=== PATIENT | female | born 1975 | race Caucasian/White ===

== ENCOUNTER 2017-11-05 11:29 | Emergency (ER) | payer MEDICAID, OTHER ==
[2017-11-05] MEDS ORDERED: Sodium Chloride 0.9% 1,000 ML IV ONE (11:38)
[2017-11-05] MEDS ORDERED: Sodium Chloride 0.9% 10 ML Syringe FLUSH PRN (11:38)
[2017-11-05] MEDS ORDERED: HYDROmorphone 2 MG/ML SDV IVPUSH ONE (11:38)
--- NOTE | 2017-11-05 11:38 | EDM.PDOC ---
ED HPI GENERAL MEDICAL PROBLEM - General Chief Complaint: Abdominal Pain Stated Complaint: STOMACH PAIN Time Seen by Provider: 11/05/17 11:37 Source of Information: Reports: Patient History Limitations: Reports: No Limitations - History of Present Illness INITIAL COMMENTS - FREE TEXT/NARRATIVE: Presents with lower and epigastric pain since this morning associated with N/V and slight diarrhea. Onset: Today Duration: Day(s): Location: Reports: Abdomen Quality: Reports: Dull Severity: Moderate - Related Data Allergies Allergy/AdvReac Type Severity Reaction Status Date / Time tide Allergy Hives Uncoded 11/05/17 11:35 Home Meds: Home Meds Acetaminophen/HYDROcodone [[place] 325-5 MG] 1 - 2 tab PO Q6H PRN #20 tab [Rx] Doxycycline [Vibramycin] 100 mg PO BID 10 Days #20 cap 11/05/17 [Rx] Esomeprazole [NexIUM] 80 mg PO DAILY 11/05/17 [History] Fluconazole [Diflucan] 150 mg PO ONETIME #1 tab 11/05/17 [Rx] Herbal Drugs [Colon Herbal Cleanser] 1 each PO 11/05/17 [History] Lipozene 1 tab PO DAILY 11/05/17 [History] Promethazine [Phenergan] 25 mg PO Q6H PRN #15 tab 11/05/17 [Rx] metroNIDAZOLE [Flagyl] 500 mg PO Q12H 7 Days #14 tab 11/05/17 [Rx] Past Medical History Gastrointestinal History: Reports: PUD - Past Surgical History GI Surgical History: Denies: Appendectomy, Cholecystectomy Female Surgical History: Reports: Tubal Ligation Social & Family History - Tobacco Use Smoking Status *Q: Current Every Day Smoker Tobacco Use Within Last Twelve Months: Cigarettes - Alcohol Use Alcohol Use History: Yes Alcohol Use in Last Twelve Months: Yes Alcohol Use Frequency: Rarely - Recreational Drug Use Recreational Drug Use: No - Living Situation & Occupation Living situation: Reports: ED ROS GENERAL - Review of Systems Review Of Systems: See Below Constitutional: Reports: No Symptoms HEENT: Reports: No Symptoms Respiratory: Reports: No Symptoms Cardiovascular: Reports: No Symptoms Endocrine: Reports: No Symptoms GI/Abdominal: Reports: Abdominal Pain, Diarrhea (slight), Nausea, Vomiting ( epigastric and lower) : Reports: No Symptoms, Other (+vaginal discharge) Musculoskeletal: Reports: No Symptoms Skin: Reports: No Symptoms Neurological: Reports: No Symptoms Psychiatric: Reports: No Symptoms Hematologic/Lymphatic: Reports: No Symptoms Immunologic: Reports: No Symptoms ED EXAM, GI/ABD - Physical Exam Exam: See Below Exam Limited By: No Limitations General Appearance: Alert, WD/WN, Mild Distress Ears: Normal External Exam Nose: Normal Inspection Throat/Mouth: No Airway Compromise Head: Atraumatic, Normocephalic Neck: Supple Respiratory/Chest: No Respiratory Distress, Lungs Clear, Normal Breath Sounds Cardiovascular: Regular Rate, Rhythm, No Gallop, No JVD, No Murmur, No Rub GI/Abdominal Exam: Normal Bowel Sounds, Soft, Tender (moderate epigastric and lower) (Female) Exam: Normal External Exam, Cervix Motion Tenderness, Vaginal Discharge Back Exam: Normal Inspection Extremities: Normal Inspection, Normal Range of Motion Neurological: Alert, Oriented, Normal Cognition Psychiatric: Normal Affect, Normal Mood Skin Exam: Warm, Dry, Intact, Normal Color, No Rash Course - Vital Signs Last Recorded V/S: Last Vital Signs Temp 36.4 C 11/05/17 11:40 Pulse 92 11/05/17 11:40 Resp 14 11/05/17 11:40 BP 141/89 H 11/05/17 11:40 Pulse Ox 100 11/05/17 11:40 - Orders/Labs/Meds Orders: Active Orders 24 hr Category Date Time Status Abdomen Pelvis w Cont [CT] Stat Exams 11/05/17 13:33 Taken CHLAMYDIA/GC AMPLIFICATION Stat Lab 11/05/17 11:50 Received HCG QUALITATIVE,URINE [URCHEM] Stat Lab 11/05/17 11:50 Ordered UA W/MICROSCOPIC [URIN] Stat Lab 11/05/17 11:50 Ordered WET PREP [MYC] Stat Lab 11/05/17 17:55 Ordered Sodium Chloride 0.9% [Saline Flush] Med 11/05/17 11:38 Active 10 ml FLUSH ASDIRECTED PRN Saline Lock Insert [OM.PC] Routine Oth 11/05/17 11:38 Ordered Medication Orders Sodium Chloride (Saline Flush) 10 ml FLUSH ASDIRECTED PRN PRN Reason: Keep Vein Open Labs: Laboratory Tests 11/05/17 11/05/17 11/05/17 Range/Units 11:45 11:45 11:45 WBC 6.7 (4.5-12.0) X10-3/uL RBC 5.11 (3.23-5.20) x10(6)uL Hgb 10.4 L (11.5-15.5) g/dL Hct 33.7 (30.0-51.3) % MCV 66.0 L (80-96) fL MCH 20.4 L (27.7-33.6) pg MCHC 30.9 L (32.2-35.4) g/dL RDW 18.1 H (11.5-15.5) % Plt Count 246 (125-369) X10(3)uL MPV 8.0 (7.4-10.4) fL Neut % (Auto) 53.6 (46-82) % Lymph % (Auto) 38.1 H (13-37) % [place] % (Auto) 7.2 (4-12) % Eos % (Auto) 1 (1.0-5.0) % Baso % (Auto) 0 (0-2) % Neut # (Auto) 3.6 (1.6-8.3) # Lymph # (Auto) 2.5 (0.6-5.0) # [place] # (Auto) 0.5 (0.0-1.3) # Eos # (Auto) 0.1 (0.0-0.8) # Baso # (Auto) 0.0 (0.0-0.2) # PT 9.6 (8.7-11.1) INR 0.99 (0.89-1.13) Sodium 137 (135-145) mmol/L Potassium 3.5 (3.5-5.3) mmol/L Chloride 102 (100-110) mmol/L Carbon Dioxide 20 L (21-32) mmol/L BUN 14 (7-18) mg/dL Creatinine 0.7 (0.55-1.02) mg/dL Est Cr Clr Drug Dosing TNP Estimated GFR (MDRD) > 60 (>60) BUN/Creatinine Ratio 20.0 (9-20) Glucose 147 H (80-116) mg/dL Calcium 9.0 (8.6-10.2) mg/dL Total Bilirubin 0.5 (0.1-1.3) mg/dL AST 15 (5-25) IU/L ALT 18 (12-36) U/L Alkaline Phosphatase 75 (56-112) IU/L Total Protein 7.7 (6.0-8.0) g/dL Albumin 3.4 L (3.5-5.2) g/dL Globulin 4.3 g/dL Albumin/Globulin Ratio 0.8 Amylase 36 (25-115) U/L Urine Color (YELLOW) Urine Appearance (CLEAR) Urine pH (5.0-6.5) Ur Specific Gill (1.010-1.025) Urine Protein (NEGATIVE) mg/dL Urine Glucose (UA) (NEGATIVE) mg/dL Urine Ketones (NEGATIVE) mg/dL Urine Occult Blood (NEGATIVE) Urine Nitrite (NEGATIVE) Urine Bilirubin (NEGATIVE) Urine Urobilinogen (NEGATIVE) mg/dL Ur Leukocyte Esterase (NEGATIVE) Urine WBC (0) Ur Squamous Epith Cells (NS,R,O) Urine Bacteria (NS) Urine HCG, Qual (NEGATIVE) 11/05/17 11/05/17 Range/Units 11:50 11:50 WBC (4.5-12.0) X10-3/uL RBC (3.23-5.20) x10(6)uL Hgb (11.5-15.5) g/dL Hct (30.0-51.3) % MCV (80-96) fL MCH (27.7-33.6) pg MCHC (32.2-35.4) g/dL RDW (11.5-15.5) % Plt Count (125-369) X10(3)uL MPV (7.4-10.4) fL Neut % (Auto) (46-82) % Lymph % (Auto) (13-37) % [place] % (Auto) (4-12) % Eos % (Auto) (1.0-5.0) % Baso % (Auto) (0-2) % Neut # (Auto) (1.6-8.3) # Lymph # (Auto) (0.6-5.0) # [place] # (Auto) (0.0-1.3) # Eos # (Auto) (0.0-0.8) # Baso # (Auto) (0.0-0.2) # PT (8.7-11.1) INR (0.89-1.13) Sodium (135-145) mmol/L Potassium (3.5-5.3) mmol/L Chloride (100-110) mmol/L Carbon Dioxide (21-32) mmol/L BUN (7-18) mg/dL Creatinine (0.55-1.02) mg/dL Est Cr Clr Drug Dosing Estimated GFR (MDRD) (>60) BUN/Creatinine Ratio (9-20) Glucose (80-116) mg/dL Calcium (8.6-10.2) mg/dL Total Bilirubin (0.1-1.3) mg/dL AST (5-25) IU/L ALT (12-36) U/L Alkaline Phosphatase (56-112) IU/L Total Protein (6.0-8.0) g/dL Albumin (3.5-5.2) g/dL Globulin g/dL Albumin/Globulin Ratio Amylase (25-115) U/L Urine Color Yellow (YELLOW) Urine Appearance Cloudy (CLEAR) Urine pH 5.0 (5.0-6.5) Ur Specific Gill 1.025 (1.010-1.025) Urine Protein Negative (NEGATIVE) mg/dL Urine Glucose (UA) 50 H (NEGATIVE) mg/dL Urine Ketones 50 H (NEGATIVE) mg/dL Urine Occult Blood Negative (NEGATIVE) Urine Nitrite Negative (NEGATIVE) Urine Bilirubin Small H (NEGATIVE) Urine Urobilinogen 1 H (NEGATIVE) mg/dL Ur Leukocyte Esterase Negative (NEGATIVE) Urine WBC 0-5 (0) Ur Squamous Epith Cells Moderate H (NS,R,O) Urine Bacteria Moderate H (NS) Urine HCG, Qual Negative (NEGATIVE) Meds: Medications Generic Name Dose Route Start Last Admin Trade Name Freq PRN Reason Stop Dose Admin Sodium Chloride 10 ml 11/05/17 11:38 Saline Flush FLUSH ASDIRECTED PRN Keep Vein Open Discontinued Medications Generic Name Dose Route Start Last Admin Trade Name Freq PRN Reason Stop Dose Admin Ceftriaxone Sodium 1,000 mg 11/05/17 16:45 11/05/17 18:02 Rocephin IVPUSH 11/05/17 16:46 1,000 mg ONETIME ONE Administration Doxycycline Hyclate 100 mg 11/05/17 17:56 Vibra-Tabs PO 11/05/17 17:57 ONETIME ONE Hydromorphone HCl 1 mg 11/05/17 11:38 11/05/17 12:01 Dilaudid IVPUSH 11/05/17 11:39 1 mg ONETIME ONE Administration Sodium Chloride 1,000 mls @ 999 mls/hr 11/05/17 11:38 11/05/17 11:56 Normal Saline IV 11/05/17 12:38 999 mls/hr .BOLUS ONE Administration Iopamidol 100 ml 11/05/17 15:35 11/05/17 15:37 Isovue-370 (76%) IV 11/05/17 15:36 100 ml ONETIME ONE Administration Metronidazole 500 mg 11/05/17 18:31 Flagyl PO 11/05/17 18:32 ONETIME ONE Ondansetron HCl 4 mg 11/05/17 11:39 11/05/17 11:55 Zofran IVPUSH 11/05/17 11:40 4 mg ONETIME ONE Administration Pantoprazole Sodium 40 mg 11/05/17 11:39 11/05/17 11:59 Protonix Iv IVPUSH 11/05/17 11:40 40 mg ONETIME ONE Administration - Radiology Interpretation Free Text/Narrative:: CT Abd/Pelvis w/contrast: mildly thickened antrum of stomach, otherwise NAD. - Re-Assessments/Exams Free Text/Narrative Re-Assessment/Exam: 11/05/17 18:32 Symptoms improved after medications. Departure - Departure Time of Disposition: 18:32 Disposition: Home, Self-Care 01 Condition: Good Clinical Impression: PID (acute pelvic inflammatory disease), Bacterial vaginosis, Yeast vaginitis - Discharge Information *PRESCRIPTION DRUG MONITORING PROGRAM REVIEWED*: Yes *COPY OF PRESCRIPTION DRUG MONITORING REPORT IN PATIENT JERRI: Not Applicable Prescriptions: Acetaminophen/HYDROcodone [[place] 325-5 MG] 1 - 2 tab PO Q6H PRN #20 tab PRN Reason: Pain Doxycycline [Vibramycin] 100 mg PO BID 10 Days #20 cap Fluconazole [Diflucan] 150 mg PO ONETIME #1 tab metroNIDAZOLE [Flagyl] 500 mg PO Q12H 7 Days #14 tab Promethazine [Phenergan] 25 mg PO Q6H PRN #15 tab PRN Reason: Nausea/Vomiting Instructions: Bacterial Vaginosis, [id number], Bacterial Vaginosis, Vaginal Yeast Infection, Adult, Pelvic Inflammatory Disease Referrals: PCP,None [Primary Care Provider] - Forms: ED Department Discharge Additional Instructions: Fill prescriptions and take as directed. Follow up with your doctor in 3 days. Return to the ER if symptoms worsen. - My Orders Last 24 Hours: My Active Orders 11/05/17 11:38 Sodium Chloride 0.9% [Saline Flush] 10 ml FLUSH ASDIRECTED PRN Saline Lock Insert [OM.PC] Routine 11/05/17 11:50 CHLAMYDIA/GC AMPLIFICATION Stat HCG QUALITATIVE,URINE [URCHEM] Stat UA W/MICROSCOPIC [URIN] Stat 11/05/17 13:33 Abdomen Pelvis w Cont [CT] Stat 11/05/17 17:55 WET PREP [MYC] Stat - Assessment/Plan Last 24 Hours: My Active Orders 11/05/17 11:38 Sodium Chloride 0.9% [Saline Flush] 10 ml FLUSH ASDIRECTED PRN Saline Lock Insert [OM.PC] Routine 11/05/17 11:50 CHLAMYDIA/GC AMPLIFICATION Stat HCG QUALITATIVE,URINE [URCHEM] Stat UA W/MICROSCOPIC [URIN] Stat 11/05/17 13:33 Abdomen Pelvis w Cont [CT] Stat 11/05/17 17:55 WET PREP [MYC] Stat
[2017-11-05] MEDS ORDERED: Pantoprazole 40 MG Vial IVPUSH ONE (11:39)
[2017-11-05] MEDS ORDERED: Ondansetron 4 MG/2 ML SDV IVPUSH ONE (11:39)
[2017-11-05] MEDS ORDERED: Iopamidol 755 Mg/ML 100 ML Bottle IV ONE (15:35)
[2017-11-05] MEDS ORDERED: cefTRIAXone 1,000 MG VIAL IVPUSH ONE (16:45)
[2017-11-05] MEDS ORDERED: Doxycycline 100 MG Tab PO ONE (17:56)
[2017-11-05] MEDS ORDERED: metroNIDAZOLE 500 MG Tab PO ONE (18:31)
[2017-11-05 23:51] VITALS: BP 106/61
--- NOTE | 2017-11-06 11:17 | CT ---
INDICATION: Epigastric and lower midline pain, no umbilical pain. CT ABDOMEN AND PELVIS WITH CONTRAST: Spiral 2.5 mm axial sections were obtained through the abdomen and pelvis with oral and IV contrast (98 mL Isovue 370 at 2 mL/second at 100 second delay) with sagittal and coronal reconstructions, 11/05/2017 - no comparisons. These were repeated in the upper abdomen area, due to patient regurgitation at the time of the examination imaging. Total exam DLP = 875.54 mGy-cm. Lower lung koroma and pleural spaces visualized appeared normal. Minimal aortic calcification is noted. The appendix was visualized on axial images #119 through #129 and appeared normal. No evidence of free air or bowel obstruction was seen. No definite uterine mass or bladder mass was seen. The liver, spleen, adrenal glands, kidneys, and pancreas appear to be normal. The gallbladder appears somewhat distended but could be physiologically distended. This should be correlated clinically. Ultrasound may be necessary for further evaluation, depending upon clinical correlation. No calculi were identified in the gallbladder on CT. No retroperitoneal mass was seen. A tiny umbilical hernia is noted with only included fat. No organomegaly, mass lesions, or free fluid collections were identified in the abdomen or pelvis. The kidneys showed no evidence of obstruction with course and caliber of the ureters, as visualized, appearing normal. At the gastric antrum, there is some thickening of the wall suggested with the remainder of the stomach appearing unremarkable. IMPRESSION: Except for thickening of the gastric antral wall, no specific abnormality is identified in the abdomen or pelvis. The possibility of early or mild PUD would be a consideration with the gastric antral appearance. Only minmal aortic calcification was noted otherwise. Report was called to Dr. Caballero at 1613 hours on 11/05/2017. MTDD
[2017-11-08 08:04] LABS: CHLAMYDIA TRACHOMATIS, NAA Negative (Negative); NEISSERIA GONORRHOEAE, NAA Negative (Negative)
== END 2017-11-05 18:50 | disposition home or self-care (01) ==
LOC: FB.ED 11:29
DX: B37.3 Candidiasis of vulva and vagina (principal); N73.9 Female pelvic inflammatory disease, unspecified; N76.0 Acute vaginitis; F17.210 Nicotine dependence, cigarettes, uncomplicated; B96.89 Other specified bacterial agents as the cause of diseases classified elsewhere; Z91.048 Other nonmedicinal substance allergy status; Z79.899 Other long term (current) drug therapy
CPT/HCPCS: 36415; 74177; 80053; 81001; 81025; 82150; 85025; 85610; 87210; 87491; 87591; 96361; 96372; 96374; 99284; A9270; C9113; J0696; J1170; J2405; J7030; Q9967

== ENCOUNTER 2023-08-17 18:01 | Inpatient (IN) | payer MEDICAID ==
[2023-08-17 18:24] LABS: MEAN CORPUSCULAR HEMOGLOBIN 13.1 pg (23.9-33.9); MEAN CORPUSCULAR VOLUME 52.1 fL (76.7-100.5)
[2023-08-17] MEDS ORDERED: 50% Dextrose in Water 50 ML Syringe IVPUSH PRN ×3 (18:24→19:19)
[2023-08-17] MEDS ORDERED: Glucagon,Human Recombinant 1 MG Vial IM PRN ×3 (18:24→19:19)
[2023-08-17 18:28] LABS: BLOOD UREA NITROGEN,BUN 17 mg/dL (7-18); BUN/CREATININE RATIO 21.3 (9-20); CALCIUM 9.3 mg/dL (8.6-10.2); CARBON DIOXIDE,CO2 26 mmol/L (21-32); CHLORIDE,CL 95 mmol/L (100-110); CREATININE 0.8 mg/dL (0.55-1.02); ESTIMATED GFR 90 mL/min (>60); HEMATOCRIT 23.5 % (34.2-48.2); MEAN CORPUSCULAR HGB CONC 25.1 g/dL (31.9-34.8); PLATELET COUNT,PLT 207 x10(3)uL (151-488); POTASSIUM,K 3.9 mmol/L (3.5-5.3); RED BLOOD CELL COUNT 4.51 x10(6)uL (3.60-5.20); RED CELL DISTRIBUTION WIDTH 24.1 % (12.3-16.5); SODIUM,NA 132 mmol/L (135-145); WHITE BLOOD CELL COUNT,WBC 7.5 x10-3/uL (3.0-10.3)
[2023-08-17 18:34] LABS: A/G RATIO 0.8; ALANINE AMINOTRANSFERASE,ALT 18 U/L (12-36); ALBUMIN 3.3 g/dL (3.5-5.2); ALKALINE PHOSPHATASE 113 IU/L (56-112); ASPARTATE AMNIOTRANSFERASE,AST 8 IU/L (5-25); BILIRUBIN TOTAL 0.3 mg/dL (0.1-1.3); PROTEIN TOTAL,TP 7.4 g/dL (6.0-8.0)
[2023-08-17 18:35] LABS: INR 0.89 (1.00-1.24); PROTHROMBIN TIME 9.4 sec (9.0-11.1); PTT,PARTIAL THROMBOPLSTIN TIME 21.7 SECONDS (24.4-33.2)
[2023-08-17] MEDS: Insulin Regular, Human 100 Units/ML 3 ML Vial SUBCUT ONE ×2 (18:45→19:41)
[2023-08-17] MEDS: Insulin Lispro 100 Unit/ML 3 ML KwikPen SUBCUT STA (18:46)
[2023-08-17 18:52] LABS: GLUCOSE RANDOM 594 mg/dL (80-116)
[2023-08-17 18:53] LABS: HEMOGLOBIN 5.9 g/dL (11.4-15.5)
[2023-08-17 18:59] LABS: ANISOCYTOSIS MANY; BAND PERCENT MAN 2 % (0-6); LYMPHOCYTES PERCENT MAN 22 % (13-37); MICROCYTOSIS MANY; MONOCYTES PERCENT MAN 6 % (4-12); POIKILOCYTOSIS MANY; SCHISTOCYTES MANY; SEG NEUTROPHILS PERCENT MAN 70 % (46-82)
[2023-08-17] MEDS: Sodium Chloride 0.9% 1,000 ML IV SCH ×2 (19:00→22:31)
[2023-08-17] MEDS: Pantoprazole 40 MG Vial IVPUSH ONE (19:22)
[2023-08-17] MEDS ORDERED: Rosuvastatin 10 MG Tab PO ONE (19:24)
[2023-08-17] MEDS ORDERED: Insulin Lispro 100 Unit/ML 3 ML KwikPen SUBCUT SCH (19:30)
[2023-08-17 19:38] LABS: AMPHETAMINES SCREEN, URINE NEGATIVE (NEGATIVE); BARBITURATE SCREEN,URINE NEGATIVE (NEGATIVE); BENZODIAZEPINES SCREEN,URINE NEGATIVE (NEGATIVE); BUPRENORPHINE SCREEN,URINE NEGATIVE (NEGATIVE); METHADONE SCREEN, URINE NEGATIVE (NEGATIVE); METHAMPHETAMINE SCREEN, URINE NEGATIVE (NEGATIVE); OXYCODONE SCREEN,URINE NEGATIVE (NEGATIVE); THC SCREEN,URINE NEGATIVE (NEGATIVE)
[2023-08-17 19:39] LABS: BILIRUBIN,URINE NEGATIVE (NEGATIVE); GLUCOSE,URINE >1000 mg/dL (NORMAL); KETONES,URINE NEGATIVE (NEGATIVE); LEUKOCYTE ESTERASE,URINE MODERATE (NEGATIVE); NITRITE,URINE NEGATIVE (NEGATIVE); OCCULT BLOOD,URINE MODERATE (NEGATIVE); PH,URINE 6.5 (5.0-6.5); PROTEIN,URINE NEGATIVE (NEGATIVE); UROBILINOGEN,URINE NORMAL (NEGATIVE)
[2023-08-17 19:41] LABS: APPEARANCE,URINE CLEAR (CLEAR); COLOR,URINE YELLOW (YELLOW); RBC,URINE 0-5 (0-5); SQUAMOUS EPITHELIAL CELLS,UR FEW (NS,R,O)
[2023-08-17 19:42] LABS: BACTERIA,URINE FEW (NS)
[2023-08-17] MEDS: Iopamidol 755 Mg/ML 100 ML Bottle IV ONE (20:31)
[2023-08-17] MEDS: Sodium Chloride 0.9% 250 ML IV SCH (21:03)
[2023-08-17] MEDS: Rosuvastatin 10 MG Tab PO ONE (21:57)
[2023-08-17] MEDS: diphenhydrAMINE 50 MG/ML SDV IVPUSH ONE (22:34)
[2023-08-17] MEDS: Acetaminophen 325 MG Tab PO PRN (22:35)
[2023-08-18 06:42] LABS: BASOPHILS PERCENT AUTO 0.3 % (0.2-1.5); EOSINOPHILS ABSOLUTE AUTO 0.2 x10-3/uL (0.0-0.8); EOSINOPHILS PERCENT AUTO 3.9 % (0.6-8.1); LYMPHOCYTES ABSOLUTE AUTO 1.9 x10-3/uL (1.0-4.4); MEAN CORPUSCULAR HEMOGLOBIN 13.9 pg (23.9-33.9); MEAN CORPUSCULAR HGB CONC 25.9 g/dL (31.9-34.8); MEAN CORPUSCULAR VOLUME 53.6 fL (76.7-100.5); MEAN PLATELET VOLUME 8.8 fL (7.1-12.4); MONOCYTES ABSOLUTE AUTO 0.4 x10-3/uL (0.3-1.0); MONOCYTES PERCENT AUTO 6.7 % (4.4-15.7); NEUTROPHILS ABSOLUTE AUTO 3.1 x10-3/uL (1.5-6.3); NEUTROPHILS PERCENT AUTO 56.1 % (30.8-76.2); PLATELET COUNT,PLT 183 x10(3)uL (151-488); RED BLOOD CELL COUNT 3.88 x10(6)uL (3.60-5.20); RED CELL DISTRIBUTION WIDTH 24.1 % (12.3-16.5); WHITE BLOOD CELL COUNT,WBC 5.6 x10-3/uL (3.0-10.3)
[2023-08-18 06:48] LABS: A/G RATIO 0.7; ALANINE AMINOTRANSFERASE,ALT 18 U/L (12-36); ALBUMIN 2.4 g/dL (3.5-5.2); ALKALINE PHOSPHATASE 70 IU/L (56-112); ASPARTATE AMNIOTRANSFERASE,AST 15 IU/L (5-25); BILIRUBIN TOTAL 0.2 mg/dL (0.1-1.3); BLOOD UREA NITROGEN,BUN 10 mg/dL (7-18); CARBON DIOXIDE,CO2 23 mmol/L (21-32); CHLORIDE,CL 106 mmol/L (100-110); CREATININE 0.5 mg/dL (0.55-1.02); EST CRCL DRUG DOSING (CG) 116.24 mL/min; ESTIMATED GFR 114 mL/min (>60); GLUCOSE RANDOM 245 mg/dL (80-116); POTASSIUM,K 3.7 mmol/L (3.5-5.3); PROTEIN TOTAL,TP 5.7 g/dL (6.0-8.0); SODIUM,NA 137 mmol/L (135-145)
[2023-08-18 06:59] LABS: HEMATOCRIT 20.8 % (34.2-48.2); HEMOGLOBIN 5.4 g/dL (11.4-15.5)
[2023-08-18] MEDS: Sodium Chloride 0.9% 10 ML Syringe FLUSH PRN (08:20)
[2023-08-18] MEDS: Ketorolac 30 MG/ML SDV IVPUSH PRN (08:20)
[2023-08-18] MEDS: Pantoprazole 40 MG Vial IVPUSH SCH (08:36)
[2023-08-18] MEDS: Lisinopril 20 MG Tab PO SCH (08:36)
[2023-08-18] MEDS: Insulin Lispro 100 Unit/ML 3 ML KwikPen SUBCUT SCH (08:38)
[2023-08-18] MEDS: Levofloxacin/Dextrose 5%-Water 500 MG in Premix Bag 1 BAG IV SCH (10:20)
[2023-08-18] MEDS: Sucralfate 1 GM Tab PO SCH (11:16)
[2023-08-18] MEDS: Acetaminophen/HYDROcodone 325-5 MG Tab PO PRN (12:04)
[2023-08-18] MEDS: diphenhydrAMINE 50 MG Cap PO ONE (13:19)
[2023-08-18] MEDS: Sodium Chloride 0.9% 250 ML IV SCH (13:46)
[2023-08-18] MEDS: Sennosides/Docusate Sodium 50-8.6 MG Tab PO PRN (17:29)
[2023-08-18] MEDS: Magnesium Hydroxide 400 MG/5 ML Susp 30 ML Cup PO PRN (17:29)
[2023-08-18] MEDS: Pantoprazole 80 MG in Sodium Chloride 0.9% 100 ML IV ONE (18:46)
[2023-08-18 18:49] LABS: BASOPHILS PERCENT AUTO 0.3 % (0.2-1.5); EOSINOPHILS ABSOLUTE AUTO 0.2 x10-3/uL (0.0-0.8); EOSINOPHILS PERCENT AUTO 2.2 % (0.6-8.1); HEMATOCRIT 27.6 % (34.2-48.2); HEMOGLOBIN 7.6 g/dL (11.4-15.5); LYMPHOCYTES ABSOLUTE AUTO 2.1 x10-3/uL (1.0-4.4); LYMPHOCYTES PERCENT AUTO 30.3 % (18.4-52.1); MEAN CORPUSCULAR HEMOGLOBIN 16.7 pg (23.9-33.9); MEAN CORPUSCULAR HGB CONC 27.4 g/dL (31.9-34.8); MEAN CORPUSCULAR VOLUME 61.1 fL (76.7-100.5); MONOCYTES ABSOLUTE AUTO 0.4 x10-3/uL (0.3-1.0); MONOCYTES PERCENT AUTO 5.7 % (4.4-15.7); NEUTROPHILS ABSOLUTE AUTO 4.2 x10-3/uL (1.5-6.3); NEUTROPHILS PERCENT AUTO 61.5 % (30.8-76.2); PLATELET COUNT,PLT 173 x10(3)uL (151-488); RED CELL DISTRIBUTION WIDTH 34.3 % (12.3-16.5); WHITE BLOOD CELL COUNT,WBC 6.9 x10-3/uL (3.0-10.3)
[2023-08-18 18:56] LABS: RED BLOOD CELL COUNT 4.52 x10(6)uL (3.60-5.20)
[2023-08-18] MEDS: Pantoprazole 80 MG in Sodium Chloride 0.9% 100 ML IV SCH (19:21)
[2023-08-18] MEDS ORDERED: 50% Dextrose in Water 50 ML Syringe IVPUSH PRN (19:44)
[2023-08-18] MEDS ORDERED: Glucagon,Human Recombinant 1 MG Vial IM PRN (19:44)
[2023-08-18] MEDS: Insulin Glargine,Human Rec. Analog 100 Units/ML 3 ML Pen SUBCUT SCH (20:06)
[2023-08-19 06:02] LABS: BASOPHILS PERCENT AUTO 0.7 % (0.2-1.5); EOSINOPHILS ABSOLUTE AUTO 0.2 x10-3/uL (0.0-0.8); EOSINOPHILS PERCENT AUTO 3.2 % (0.6-8.1); HEMATOCRIT 26.5 % (34.2-48.2); HEMOGLOBIN 7.6 g/dL (11.4-15.5); LYMPHOCYTES PERCENT AUTO 28.6 % (18.4-52.1); MEAN CORPUSCULAR HEMOGLOBIN 17.3 pg (23.9-33.9); MEAN CORPUSCULAR HGB CONC 28.6 g/dL (31.9-34.8); MEAN CORPUSCULAR VOLUME 60.7 fL (76.7-100.5); MONOCYTES ABSOLUTE AUTO 0.4 x10-3/uL (0.3-1.0); MONOCYTES PERCENT AUTO 5.3 % (4.4-15.7); NEUTROPHILS ABSOLUTE AUTO 4.4 x10-3/uL (1.5-6.3); NEUTROPHILS PERCENT AUTO 62.2 % (30.8-76.2); PLATELET COUNT,PLT 169 x10(3)uL (151-488); RED CELL DISTRIBUTION WIDTH 33.9 % (12.3-16.5)
[2023-08-19 06:17] LABS: A/G RATIO 0.7; ALANINE AMINOTRANSFERASE,ALT 25 U/L (12-36); ALBUMIN 2.3 g/dL (3.5-5.2); ALKALINE PHOSPHATASE 72 IU/L (56-112); ASPARTATE AMNIOTRANSFERASE,AST 24 IU/L (5-25); BILIRUBIN TOTAL 0.2 mg/dL (0.1-1.3); BLOOD UREA NITROGEN,BUN 8 mg/dL (7-18); BUN/CREATININE RATIO 13.3 (9-20); CALCIUM 7.5 mg/dL (8.6-10.2); CARBON DIOXIDE,CO2 23 mmol/L (21-32); CHLORIDE,CL 107 mmol/L (100-110); CREATININE 0.6 mg/dL (0.55-1.02); EST CRCL DRUG DOSING (CG) 96.86 mL/min; ESTIMATED GFR 109 mL/min (>60); GLUCOSE RANDOM 281 mg/dL (80-116); POTASSIUM,K 3.7 mmol/L (3.5-5.3); PROTEIN TOTAL,TP 5.4 g/dL (6.0-8.0); SODIUM,NA 137 mmol/L (135-145)
[2023-08-19 06:29] LABS: RED BLOOD CELL COUNT 4.37 x10(6)uL (3.60-5.20)
[2023-08-19] MEDS: Ondansetron 4 MG/2 ML SDV IV PRN (10:57)
[2023-08-19] MEDS: fentaNYL 100 MCG/2 ML SDV IVPUSH PRN (11:20)
[2023-08-19] MEDS: Polyethylene Glycol 3350 Powder 238 GM Bot PO ONE (14:27)
[2023-08-19] MEDS: Bisacodyl 5 MG Tab PO ONE ×2 (14:27→16:47)
[2023-08-19] MEDS: Pantoprazole 80 MG in Sodium Chloride 0.9% 100 ML IV SCH (17:21)
[2023-08-20 06:43] LABS: BASOPHILS PERCENT AUTO 0.6 % (0.2-1.5); EOSINOPHILS ABSOLUTE AUTO 0.1 x10-3/uL (0.0-0.8); EOSINOPHILS PERCENT AUTO 2.9 % (0.6-8.1); HEMATOCRIT 28.8 % (34.2-48.2); LYMPHOCYTES ABSOLUTE AUTO 1.4 x10-3/uL (1.0-4.4); LYMPHOCYTES PERCENT AUTO 27.8 % (18.4-52.1); MEAN CORPUSCULAR HEMOGLOBIN 16.7 pg (23.9-33.9); MEAN CORPUSCULAR HGB CONC 27.8 g/dL (31.9-34.8); MEAN CORPUSCULAR VOLUME 60.1 fL (76.7-100.5); MEAN PLATELET VOLUME 8.3 fL (7.1-12.4); MONOCYTES ABSOLUTE AUTO 0.4 x10-3/uL (0.3-1.0); MONOCYTES PERCENT AUTO 7.4 % (4.4-15.7); NEUTROPHILS ABSOLUTE AUTO 3.1 x10-3/uL (1.5-6.3); NEUTROPHILS PERCENT AUTO 61.3 % (30.8-76.2); PLATELET COUNT,PLT 219 x10(3)uL (151-488); RED CELL DISTRIBUTION WIDTH 33.3 % (12.3-16.5)
[2023-08-20 06:46] LABS: BLOOD UREA NITROGEN,BUN 4 mg/dL (7-18); CALCIUM 7.9 mg/dL (8.6-10.2); CARBON DIOXIDE,CO2 24 mmol/L (21-32); CHLORIDE,CL 112 mmol/L (100-110); CREATININE 0.4 mg/dL (0.55-1.02); ESTIMATED GFR 121 mL/min (>60); GLUCOSE RANDOM 117 mg/dL (80-116); POTASSIUM,K 3.2 mmol/L (3.5-5.3); SODIUM,NA 144 mmol/L (135-145)
[2023-08-20 06:58] LABS: RED BLOOD CELL COUNT 4.78 x10(6)uL (3.60-5.20)
[2023-08-20] MEDS: Lactated Ringers 1,000 ML IV PRN (07:30)
[2023-08-20] MEDS: Simethicone Drops 40 MG/0.6 ML 30 ML Bottle PO ONE (07:40)
[2023-08-20] MEDS: Escitalopram 10 MG Tab PO SCH (09:52)
[2023-08-20] MEDS: Ketorolac 30 MG/ML SDV IVPUSH PRN (09:52)
[2023-08-20] MEDS: Bisacodyl 5 MG Tab PO ONE ×2 (13:54→17:29)
[2023-08-20] MEDS: Polyethylene Glycol 3350 Powder 238 GM Bot PO ONE (15:22)
[2023-08-21 06:43] LABS: BASOPHILS PERCENT AUTO 0.4 % (0.2-1.5); EOSINOPHILS ABSOLUTE AUTO 0.2 x10-3/uL (0.0-0.8); EOSINOPHILS PERCENT AUTO 3.4 % (0.6-8.1); HEMATOCRIT 28.9 % (34.2-48.2); LYMPHOCYTES ABSOLUTE AUTO 1.5 x10-3/uL (1.0-4.4); LYMPHOCYTES PERCENT AUTO 31.4 % (18.4-52.1); MEAN CORPUSCULAR HEMOGLOBIN 16.6 pg (23.9-33.9); MEAN CORPUSCULAR HGB CONC 27.6 g/dL (31.9-34.8); MEAN PLATELET VOLUME 8.9 fL (7.1-12.4); MONOCYTES ABSOLUTE AUTO 0.4 x10-3/uL (0.3-1.0); MONOCYTES PERCENT AUTO 8.6 % (4.4-15.7); NEUTROPHILS ABSOLUTE AUTO 2.6 x10-3/uL (1.5-6.3); NEUTROPHILS PERCENT AUTO 56.2 % (30.8-76.2); PLATELET COUNT,PLT 260 x10(3)uL (151-488); RED CELL DISTRIBUTION WIDTH 34.3 % (12.3-16.5); WHITE BLOOD CELL COUNT,WBC 4.7 x10-3/uL (3.0-10.3)
[2023-08-21 06:55] LABS: BLOOD UREA NITROGEN,BUN 4 mg/dL (7-18); CALCIUM 8.2 mg/dL (8.6-10.2); CARBON DIOXIDE,CO2 25 mmol/L (21-32); CHLORIDE,CL 111 mmol/L (100-110); CREATININE 0.4 mg/dL (0.55-1.02); ESTIMATED GFR 121 mL/min (>60); GLUCOSE RANDOM 125 mg/dL (80-116); POTASSIUM,K 3.3 mmol/L (3.5-5.3); SODIUM,NA 143 mmol/L (135-145)
[2023-08-21 07:00] LABS: RED BLOOD CELL COUNT 4.82 x10(6)uL (3.60-5.20)
[2023-08-21] MEDS ORDERED: Lactated Ringers 1,000 ML IV SCH (08:00)
[2023-08-21] MEDS ORDERED: Insulin Glargine,Human Rec. Analog 100 Units/ML 3 ML Pen SUBCUT ONE (11:29)
[2023-08-21] MEDS ORDERED: Insulin Lispro 100 Unit/ML 3 ML KwikPen SUBCUT ONE (11:29)
[2023-08-21] MEDS ORDERED: Midazolam 1 MG/ML 2 ML SDV IV ONE (14:20)
[2023-08-21] MEDS ORDERED: Propofol 200 MG/20 ML SDV IV ONE ×2 (14:20)
[2023-08-21] MEDS ORDERED: Ketorolac 30 MG/ML SDV IVPUSH ONE (14:20)
[2023-08-21] MEDS ORDERED: Flumazenil 0.1 MG/ML 5 ML MDV IV ONE (14:20)
[2023-08-21] MEDS ORDERED: Lidocaine 2% 100 MG/5 ML Syringe IVPUSH ONE ×2 (14:20)
[2023-08-21 14:21] VITALS: BP 130/81; PULSE 78
== END 2023-08-21 11:30 | disposition home or self-care (01) | DRG 809 ==
LOC: FB.ED 18:01 → FB.MS 19:14
PROVIDERS: ADMIT Family Medicine; ATTEND Family Medicine
PROC: 30233N1 Transfusion of Nonautologous Red Blood Cells into Peripheral Vein, Percutaneous Approach (ICD-10-PCS; 2023-08-17)
PROC: 30233N1 Transfusion of Nonautologous Red Blood Cells into Peripheral Vein, Percutaneous Approach (ICD-10-PCS; 2023-08-18)
PROC: 0DJ08ZZ Inspection of Upper Intestinal Tract, Via Natural or Artificial Opening Endoscopic (ICD-10-PCS; 2023-08-20 08:00)
PROC: 0DJD8ZZ Inspection of Lower Intestinal Tract, Via Natural or Artificial Opening Endoscopic (ICD-10-PCS; principal; 2023-08-21 08:45)
DX: D59.12 Cold autoimmune hemolytic anemia (principal); K92.1 Melena; N30.00 Acute cystitis without hematuria; K31.7 Polyp of stomach and duodenum; E11.65 Type 2 diabetes mellitus with hyperglycemia; E11.9 Type 2 diabetes mellitus without complications; T80.92XA Unspecified transfusion reaction, initial encounter; F41.9 Anxiety disorder, unspecified; F32.A Depression, unspecified; K21.9 Gastro-esophageal reflux disease without esophagitis; Z79.899 Other long term (current) drug therapy; E11.43 Type 2 diabetes mellitus with diabetic autonomic (poly)neuropathy; K59.01 Slow transit constipation; K27.9 Peptic ulcer, site unspecified, unspecified as acute or chronic, without hemorrhage or perforation; E86.0 Dehydration; R51.9 Headache, unspecified; R41.0 Disorientation, unspecified; F17.210 Nicotine dependence, cigarettes, uncomplicated; Z88.0 Allergy status to penicillin; Z88.8 Allergy status to other drugs, medicaments and biological substances; Z98.51 Tubal ligation status; Z86.010 Personal history of colon polyps
CPT/HCPCS: 00811; 00813; 36415; 36430; 51702; 70450; 70551; 71045; 74177; 80048; 80053; 80307; 81001; 82947; 83036; 84484; 85025; 85610; 85730; 86850; 86900; 86901; 86920; 86922; 87086; 93005; 93010; 96374; 99223; 99232; 99233; 99238; 99285; 99285-25; A9270-GY; C9113; J1200; J1815; J1815-GY; J1885; J1956; J2250; J2405; J2704; J3010; J3490; J7030; J7050; J7120; P9016; Q9967

== ENCOUNTER 2023-09-03 13:35 | Emergency (ER) | payer MEDICAID ==
[2023-09-03 15:28] LABS: BASOPHILS PERCENT AUTO 0.5 % (0.2-1.5); EOSINOPHILS ABSOLUTE AUTO 0.1 x10-3/uL (0.0-0.8); EOSINOPHILS PERCENT AUTO 1.7 % (0.6-8.1); HEMATOCRIT 33.1 % (34.2-48.2); HEMOGLOBIN 9.2 g/dL (11.4-15.5); LYMPHOCYTES PERCENT AUTO 37.6 % (18.4-52.1); MEAN CORPUSCULAR HEMOGLOBIN 16.4 pg (23.9-33.9); MEAN CORPUSCULAR HGB CONC 27.7 g/dL (31.9-34.8); MEAN CORPUSCULAR VOLUME 59.3 fL (76.7-100.5); MEAN PLATELET VOLUME 8.5 fL (7.1-12.4); MONOCYTES ABSOLUTE AUTO 0.4 x10-3/uL (0.3-1.0); MONOCYTES PERCENT AUTO 7.2 % (4.4-15.7); NEUTROPHILS ABSOLUTE AUTO 2.8 x10-3/uL (1.5-6.3); PLATELET COUNT,PLT 401 x10(3)uL (151-488); RED CELL DISTRIBUTION WIDTH 33.4 % (12.3-16.5); WHITE BLOOD CELL COUNT,WBC 5.2 x10-3/uL (3.0-10.3)
[2023-09-03 15:31] LABS: BLOOD UREA NITROGEN,BUN 12 mg/dL (7-18); CARBON DIOXIDE,CO2 29 mmol/L (21-32); CHLORIDE,CL 102 mmol/L (100-110); CREATININE 0.6 mg/dL (0.55-1.02); EST CRCL DRUG DOSING (CG) 96.86 mL/min; ESTIMATED GFR 109 mL/min (>60); GLUCOSE RANDOM 171 mg/dL (80-116); SODIUM,NA 140 mmol/L (135-145)
[2023-09-03 15:37] LABS: A/G RATIO 0.8; ALANINE AMINOTRANSFERASE,ALT 30 U/L (12-36); ALBUMIN 3.4 g/dL (3.5-5.2); ALKALINE PHOSPHATASE 80 IU/L (56-112); ASPARTATE AMNIOTRANSFERASE,AST 22 IU/L (5-25); BILIRUBIN TOTAL 0.2 mg/dL (0.1-1.3); MAGNESIUM 1.5 mg/dL (1.8-2.5); PROTEIN TOTAL,TP 7.6 g/dL (6.0-8.0)
[2023-09-03 15:47] LABS: RED BLOOD CELL COUNT 5.59 x10(6)uL (3.60-5.20)
[2023-09-03 15:48] LABS: BILIRUBIN,URINE NEGATIVE (NEGATIVE); GLUCOSE,URINE >1000 mg/dL (NORMAL); KETONES,URINE NEGATIVE (NEGATIVE); LEUKOCYTE ESTERASE,URINE NEGATIVE (NEGATIVE); NITRITE,URINE NEGATIVE (NEGATIVE); OCCULT BLOOD,URINE NEGATIVE (NEGATIVE); PROTEIN,URINE NEGATIVE (NEGATIVE); UROBILINOGEN,URINE NORMAL (NEGATIVE)
[2023-09-03 15:50] LABS: APPEARANCE,URINE CLEAR (CLEAR); BACTERIA,URINE FEW (NS); COLOR,URINE YELLOW (YELLOW); RBC,URINE 0-5 (0-5); SQUAMOUS EPITHELIAL CELLS,UR FEW (NS,R,O); WBC,URINE 0-5 (0-5)
[2023-09-03 17:13] VITALS: BP 137/87; PULSE 96
[2023-09-03] MEDS: Magnesium Oxide 400 MG Tab PO ONE (18:17)
== END 2023-09-03 18:31 | disposition home or self-care (01) ==
LOC: FB.ED 13:35
DX: E83.42 Hypomagnesemia (principal); E86.0 Dehydration; E11.9 Type 2 diabetes mellitus without complications; K21.9 Gastro-esophageal reflux disease without esophagitis; Z79.4 Long term (current) use of insulin; Z79.84 Long term (current) use of oral hypoglycemic drugs; Z79.899 Other long term (current) drug therapy; Z88.0 Allergy status to penicillin; Z91.048 Other nonmedicinal substance allergy status
CPT/HCPCS: 36415; 80053; 81001; 83735; 84484; 85025; 86140; 93005; 93010; 99284; 99285; A9270-GY

== ENCOUNTER 2023-12-06 12:48 | Emergency (ER) | payer MEDICAID ==
[2023-12-06 13:41] LABS: BASOPHILS PERCENT AUTO 0.4 % (0.2-1.5); EOSINOPHILS ABSOLUTE AUTO 0.1 x10-3/uL (0.0-0.8); EOSINOPHILS PERCENT AUTO 2.3 % (0.6-8.1); HEMATOCRIT 32.7 % (34.2-48.2); HEMOGLOBIN 10.5 g/dL (11.4-15.5); LYMPHOCYTES ABSOLUTE AUTO 1.6 x10-3/uL (1.0-4.4); LYMPHOCYTES PERCENT AUTO 29.8 % (18.4-52.1); MEAN CORPUSCULAR HEMOGLOBIN 24.4 pg (23.9-33.9); MEAN CORPUSCULAR HGB CONC 32.1 g/dL (31.9-34.8); MEAN PLATELET VOLUME 8.6 fL (7.1-12.4); MONOCYTES ABSOLUTE AUTO 0.5 x10-3/uL (0.3-1.0); MONOCYTES PERCENT AUTO 8.5 % (4.4-15.7); NEUTROPHILS ABSOLUTE AUTO 3.2 x10-3/uL (1.5-6.3); PLATELET COUNT,PLT 291 x10(3)uL (151-488); WHITE BLOOD CELL COUNT,WBC 5.5 x10-3/uL (3.0-10.3)
[2023-12-06 13:50] LABS: BLOOD UREA NITROGEN,BUN 8 mg/dL (7-18); BUN/CREATININE RATIO 13.3 (9-20); CALCIUM 8.5 mg/dL (8.6-10.2); CARBON DIOXIDE,CO2 27 mmol/L (21-32); CHLORIDE,CL 106 mmol/L (100-110); CREATININE 0.6 mg/dL (0.55-1.02); EST CRCL DRUG DOSING (CG) 96.86 mL/min; ESTIMATED GFR 109 mL/min (>60); POTASSIUM,K 3.2 mmol/L (3.5-5.3); SODIUM,NA 143 mmol/L (135-145)
[2023-12-06] MEDS: Gabapentin 300 MG Cap PO ONE (13:51)
[2023-12-06] MEDS: Ondansetron 4 MG Tab.DIS PO ONE (13:51)
[2023-12-06 13:55] LABS: A/G RATIO 0.9; ALANINE AMINOTRANSFERASE,ALT 14 U/L (12-36); ALBUMIN 3.1 g/dL (3.5-5.2); ALKALINE PHOSPHATASE 72 IU/L (56-112); ASPARTATE AMNIOTRANSFERASE,AST 11 IU/L (5-25); BILIRUBIN TOTAL 0.2 mg/dL (0.1-1.3); PROTEIN TOTAL,TP 6.7 g/dL (6.0-8.0)
[2023-12-06 14:06] LABS: GLUCOSE RANDOM 49 mg/dL (80-116)
[2023-12-06] MEDS: 50% Dextrose in Water 50 ML Syringe IVPUSH ONE (14:25)
[2023-12-06] MEDS: Dextrose 5%-0.9% NaCl 1,000 ML IV SCH (14:57)
[2023-12-06 17:30] VITALS: BP 112/78; PULSE 72
== END 2023-12-06 16:27 | disposition home or self-care (01) ==
LOC: FB.ED 12:48
DX: D50.9 Iron deficiency anemia, unspecified (principal); B02.9 Zoster without complications; E11.649 Type 2 diabetes mellitus with hypoglycemia without coma; Z88.0 Allergy status to penicillin; Z91.048 Other nonmedicinal substance allergy status; Z79.4 Long term (current) use of insulin; Z79.84 Long term (current) use of oral hypoglycemic drugs; Z79.899 Other long term (current) drug therapy; Z87.891 Personal history of nicotine dependence
CPT/HCPCS: 36415; 80053; 82947; 85025; 87635; 96361; 96374; 99284; A9270; Q0162; U0002

== ENCOUNTER 2023-12-12 21:52 | Observation (INO) | payer MEDICAID ==
[2023-12-12] MEDS: 50% Dextrose in Water 50 ML Syringe ONE (22:02)
[2023-12-12 22:20] LABS: BASOPHILS PERCENT AUTO 0.2 % (0.2-1.5); HEMOGLOBIN 11.5 g/dL (11.4-15.5); MONOCYTES ABSOLUTE AUTO 0.9 x10-3/uL (0.3-1.0)
[2023-12-12] MEDS: Ondansetron 4 MG/2 ML SDV IVPUSH ONE (22:21)
[2023-12-12 22:23] LABS: EOSINOPHILS ABSOLUTE AUTO 0.1 x10-3/uL (0.0-0.8); EOSINOPHILS PERCENT AUTO 0.8 % (0.6-8.1); HEMATOCRIT 35.5 % (34.2-48.2); LYMPHOCYTES ABSOLUTE AUTO 1.6 x10-3/uL (1.0-4.4); LYMPHOCYTES PERCENT AUTO 19.8 % (18.4-52.1); MEAN CORPUSCULAR HEMOGLOBIN 24.4 pg (23.9-33.9); MEAN CORPUSCULAR HGB CONC 32.4 g/dL (31.9-34.8); MEAN PLATELET VOLUME 8.8 fL (7.1-12.4); MONOCYTES PERCENT AUTO 10.7 % (4.4-15.7); NEUTROPHILS ABSOLUTE AUTO 5.5 x10-3/uL (1.5-6.3); NEUTROPHILS PERCENT AUTO 68.5 % (30.8-76.2); PLATELET COUNT,PLT 295 x10(3)uL (151-488); RED BLOOD CELL COUNT 4.72 x10(6)uL (3.60-5.20); RED CELL DISTRIBUTION WIDTH 19.8 % (12.3-16.5)
[2023-12-12] MEDS: Sodium Chloride 0.9% 1,000 ML IV SCH (22:24)
[2023-12-12] MEDS ORDERED: Glucagon,Human Recombinant 1 MG Vial IM PRN (22:25)
[2023-12-12 22:29] LABS: A/G RATIO 0.8; ALANINE AMINOTRANSFERASE,ALT 15 U/L (12-36); ALBUMIN 3.7 g/dL (3.5-5.2); ALKALINE PHOSPHATASE 80 IU/L (56-112); ASPARTATE AMNIOTRANSFERASE,AST 12 IU/L (5-25); BILIRUBIN TOTAL 0.2 mg/dL (0.1-1.3); BLOOD UREA NITROGEN,BUN 14 mg/dL (7-18); BUN/CREATININE RATIO 15.6 (9-20); CALCIUM 9.3 mg/dL (8.6-10.2); CARBON DIOXIDE,CO2 26 mmol/L (21-32); CHLORIDE,CL 102 mmol/L (100-110); CREATININE 0.9 mg/dL (0.55-1.02); ESTIMATED GFR 78 mL/min (>60); PROTEIN TOTAL,TP 8.1 g/dL (6.0-8.0); SODIUM,NA 139 mmol/L (135-145)
[2023-12-12 22:36] LABS: MEAN CORPUSCULAR VOLUME 75.2 fL (76.7-100.5)
[2023-12-12 22:37] LABS: POTASSIUM,K 2.8 mmol/L (3.5-5.3)
[2023-12-12 22:38] LABS: GLUCOSE RANDOM 46 mg/dL (80-116)
[2023-12-12] MEDS: Dextrose 5%-0.9% NaCl 1,000 ML IV SCH (22:44)
[2023-12-12 22:47] LABS: C-REACTIVE PROTEIN 0.73 mg/dL (<0.50)
[2023-12-12 22:48] LABS: PHOSPHORUS 4.4 mg/dL (2.6-4.6)
[2023-12-12 22:55] LABS: ETHANOL BLOOD MEDICAL < 0.03 % (<0.03); TROPONIN I < 4.0 pg/mL (4.0-60.3)
[2023-12-12] MEDS ORDERED: Ondansetron 4 MG/2 ML SDV IV PRN (22:57)
[2023-12-12 22:58] LABS: MAGNESIUM 1.1 mg/dL (1.8-2.5)
[2023-12-12] MEDS: Magnesium Sulfate/Water 4 GM in Premix Bag 1 BAG IV ONE (23:26)
[2023-12-12] MEDS: Potassium Chloride 20 MEQ Tab.ER PO ONE (23:29)
[2023-12-13] MEDS: 50% Dextrose in Water 50 ML Syringe IVPUSH ONE (00:04)
[2023-12-13] MEDS: Ondansetron 4 MG/2 ML SDV ONE (00:06)
[2023-12-13] MEDS: Dextrose 5%-0.9% NaCl with KCl 1,000 ML IV SCH ×2 (00:14→08:38)
[2023-12-13] MEDS: Ketorolac 30 MG/ML SDV IVPUSH PRN (00:21)
[2023-12-13 06:26] LABS: BASOPHILS PERCENT AUTO 0.3 % (0.2-1.5); EOSINOPHILS ABSOLUTE AUTO 0.1 x10-3/uL (0.0-0.8); EOSINOPHILS PERCENT AUTO 1.5 % (0.6-8.1); HEMATOCRIT 31.3 % (34.2-48.2); LYMPHOCYTES ABSOLUTE AUTO 1.3 x10-3/uL (1.0-4.4); LYMPHOCYTES PERCENT AUTO 29.2 % (18.4-52.1); MEAN CORPUSCULAR HEMOGLOBIN 24.4 pg (23.9-33.9); MEAN CORPUSCULAR HGB CONC 31.8 g/dL (31.9-34.8); MEAN CORPUSCULAR VOLUME 76.5 fL (76.7-100.5); MEAN PLATELET VOLUME 8.9 fL (7.1-12.4); MONOCYTES ABSOLUTE AUTO 0.4 x10-3/uL (0.3-1.0); NEUTROPHILS ABSOLUTE AUTO 2.7 x10-3/uL (1.5-6.3); PLATELET COUNT,PLT 226 x10(3)uL (151-488); RED CELL DISTRIBUTION WIDTH 18.9 % (12.3-16.5); WHITE BLOOD CELL COUNT,WBC 4.6 x10-3/uL (3.0-10.3)
[2023-12-13 06:33] LABS: BLOOD UREA NITROGEN,BUN 11 mg/dL (7-18); BUN/CREATININE RATIO 13.8 (9-20); CALCIUM 8.6 mg/dL (8.6-10.2); CARBON DIOXIDE,CO2 25 mmol/L (21-32); CHLORIDE,CL 106 mmol/L (100-110); CREATININE 0.8 mg/dL (0.55-1.02); EST CRCL DRUG DOSING (CG) 72.65 mL/min; ESTIMATED GFR 90 mL/min (>60); GLUCOSE RANDOM 154 mg/dL (80-116); MAGNESIUM 2.7 mg/dL (1.8-2.5); POTASSIUM,K 4.2 mmol/L (3.5-5.3); SODIUM,NA 139 mmol/L (135-145)
[2023-12-13 06:45] LABS: HEMOGLOBIN A1C 8.4 % (<5.7)
[2023-12-13 06:46] LABS: RED BLOOD CELL COUNT 4.09 x10(6)uL (3.60-5.20)
[2023-12-13 10:29] LABS: LACTIC ACID 1.6 mmol/L (0.4-2.0)
[2023-12-13] MEDS: Gabapentin 100 MG Cap PO SCH (10:37)
[2023-12-13] MEDS: Escitalopram 20 MG Tab PO SCH (10:37)
[2023-12-13] MEDS: valACYclovir 1,000 MG Tab PO SCH (10:37)
[2023-12-13] MEDS: hydrOXYzine HCl 50 MG/ML SDV IM PRN (12:43)
[2023-12-13 13:57] VITALS: BP 138/54; PULSE 95
== END 2023-12-13 13:45 | disposition home or self-care (01) ==
LOC: FB.ED 21:52 → FB.MS 22:57
PROVIDERS: ADMIT Family Medicine; ATTEND Internal Medicine
DX: E11.649 Type 2 diabetes mellitus with hypoglycemia without coma (principal); E87.6 Hypokalemia; E83.42 Hypomagnesemia; F32.A Depression, unspecified; F41.9 Anxiety disorder, unspecified; K21.9 Gastro-esophageal reflux disease without esophagitis; F17.210 Nicotine dependence, cigarettes, uncomplicated; Z79.4 Long term (current) use of insulin; Z79.84 Long term (current) use of oral hypoglycemic drugs; Z79.899 Other long term (current) drug therapy; Z88.0 Allergy status to penicillin
CPT/HCPCS: 36415; 70450; 71045; 80048; 80053; 80307; 82947; 83036; 83605; 83735; 84100; 84484; 85025; 86140; 93005; 96361; 96365; 96366; 96367; 96372; 96375; 96376; 99222; 99238; 99285-25; A9270-GY; G0378; J1885; J2405; J3410; J3475; J3480; J7030

== ENCOUNTER 2024-01-19 13:48 | Emergency (ER) | payer MEDICAID ==
[2024-01-19 14:10] VITALS: PULSE 93
[2024-01-19] MEDS ORDERED: Gabapentin 300 MG Cap PO ONE (14:40)
[2024-01-19] MEDS: Gabapentin 300 MG Cap PO ONE (14:47)
[2024-01-19 15:19] VITALS: BP 155/78
== END 2024-01-19 15:18 | disposition home or self-care (01) ==
LOC: FB.ED 13:48
DX: E11.42 Type 2 diabetes mellitus with diabetic polyneuropathy (principal); K21.9 Gastro-esophageal reflux disease without esophagitis; Z79.4 Long term (current) use of insulin; Z79.899 Other long term (current) drug therapy; Z79.84 Long term (current) use of oral hypoglycemic drugs; Z88.0 Allergy status to penicillin; Z91.048 Other nonmedicinal substance allergy status
CPT/HCPCS: 99283; A9270

== ENCOUNTER 2024-01-21 22:40 | Emergency (ER) | payer MEDICAID ==
[2024-01-21] MEDS ORDERED: Sodium Chloride 0.9% 10 ML Syringe FLUSH PRN (22:55)
[2024-01-21 23:03] VITALS: BP 140/74; PULSE 83
[2024-01-21 23:14] LABS: BASOPHILS PERCENT AUTO 0.4 % (0.2-1.5); EOSINOPHILS ABSOLUTE AUTO 0.2 x10-3/uL (0.0-0.8); EOSINOPHILS PERCENT AUTO 3.1 % (0.6-8.1); HEMATOCRIT 29.9 % (34.2-48.2); HEMOGLOBIN 9.4 g/dL (11.4-15.5); LYMPHOCYTES ABSOLUTE AUTO 1.9 x10-3/uL (1.0-4.4); LYMPHOCYTES PERCENT AUTO 34.6 % (18.4-52.1); MEAN CORPUSCULAR HEMOGLOBIN 23.9 pg (23.9-33.9); MEAN CORPUSCULAR HGB CONC 31.4 g/dL (31.9-34.8); MEAN CORPUSCULAR VOLUME 76.3 fL (76.7-100.5); MEAN PLATELET VOLUME 8.5 fL (7.1-12.4); MONOCYTES ABSOLUTE AUTO 0.5 x10-3/uL (0.3-1.0); MONOCYTES PERCENT AUTO 8.8 % (4.4-15.7); NEUTROPHILS ABSOLUTE AUTO 2.9 x10-3/uL (1.5-6.3); NEUTROPHILS PERCENT AUTO 53.1 % (30.8-76.2); PLATELET COUNT,PLT 231 x10(3)uL (151-488); RED BLOOD CELL COUNT 3.92 x10(6)uL (3.60-5.20); RED CELL DISTRIBUTION WIDTH 17.9 % (12.3-16.5); WHITE BLOOD CELL COUNT,WBC 5.4 x10-3/uL (3.0-10.3)
[2024-01-21 23:24] LABS: BLOOD UREA NITROGEN,BUN 21 mg/dL (7-18); CALCIUM 8.5 mg/dL (8.6-10.2); CARBON DIOXIDE,CO2 25 mmol/L (21-32); CHLORIDE,CL 106 mmol/L (100-110); CREATININE 0.7 mg/dL (0.55-1.02); ESTIMATED GFR 105 mL/min (>60); GLUCOSE RANDOM 67 mg/dL (80-116); SODIUM,NA 142 mmol/L (135-145)
[2024-01-21 23:29] LABS: POTASSIUM,K 2.8 mmol/L (3.5-5.3)
[2024-01-21] MEDS: Potassium Chloride 20 MEQ in Premix Bag 1 BAG IV ONE (23:55)
[2024-01-21] MEDS: Sodium Chloride 0.9% 1,000 ML IV SCH (23:55)
[2024-01-22] MEDS: Magnesium Sulfate/Water Premix 2 GM in Premix Bag 1 BAG IV ONE (00:14)
[2024-01-22 04:46] LABS: BLOOD UREA NITROGEN,BUN 21 mg/dL (7-18); CALCIUM 8.1 mg/dL (8.6-10.2); CARBON DIOXIDE,CO2 23 mmol/L (21-32); CHLORIDE,CL 104 mmol/L (100-110); CREATININE 0.5 mg/dL (0.55-1.02); ESTIMATED GFR 114 mL/min (>60); GLUCOSE RANDOM 86 mg/dL (80-116); MAGNESIUM 1.8 mg/dL (1.8-2.5); POTASSIUM,K 3.8 mmol/L (3.5-5.3); SODIUM,NA 138 mmol/L (135-145)
== END 2024-01-22 05:13 | disposition home or self-care (01) ==
LOC: FB.ED 22:40
DX: E11.649 Type 2 diabetes mellitus with hypoglycemia without coma (principal); E83.42 Hypomagnesemia; E87.6 Hypokalemia; K21.9 Gastro-esophageal reflux disease without esophagitis; Z79.899 Other long term (current) drug therapy; Z79.4 Long term (current) use of insulin; Z88.0 Allergy status to penicillin; Z91.048 Other nonmedicinal substance allergy status
CPT/HCPCS: 36415; 80048; 82947; 83605; 83735; 85025; 96365; 96366; 96367; 99283-25; 99284; J3475; J3480; J7030

== ENCOUNTER 2024-04-18 21:10 | Emergency (ER) | payer MEDICAID ==
[2024-04-18] MEDS: Dextrose 5%-0.9% NaCl 1,000 ML IV SCH (21:30)
[2024-04-18] MEDS ORDERED: 50% Dextrose in Water 50 ML Syringe ONE (21:41)
[2024-04-18 21:44] LABS: BASOPHILS PERCENT AUTO 0.2 % (0.2-1.5); EOSINOPHILS ABSOLUTE AUTO 0.1 x10-3/uL (0.0-0.8); EOSINOPHILS PERCENT AUTO 1.8 % (0.6-8.1); HEMATOCRIT 40.2 % (34.2-48.2); HEMOGLOBIN 13.4 g/dL (11.4-15.5); LYMPHOCYTES ABSOLUTE AUTO 1.5 x10-3/uL (1.0-4.4); MEAN CORPUSCULAR HGB CONC 33.2 g/dL (31.9-34.8); MEAN CORPUSCULAR VOLUME 87.4 fL (76.7-100.5); MEAN PLATELET VOLUME 8.1 fL (7.1-12.4); MONOCYTES ABSOLUTE AUTO 0.4 x10-3/uL (0.3-1.0); MONOCYTES PERCENT AUTO 6.5 % (4.4-15.7); NEUTROPHILS ABSOLUTE AUTO 3.7 x10-3/uL (1.5-6.3); NEUTROPHILS PERCENT AUTO 65.5 % (30.8-76.2); PLATELET COUNT,PLT 226 x10(3)uL (151-488); RED CELL DISTRIBUTION WIDTH 23.5 % (12.3-16.5); WHITE BLOOD CELL COUNT,WBC 5.7 x10-3/uL (3.0-10.3)
[2024-04-18] MEDS: 50% Dextrose in Water 50 ML Syringe IVPUSH ONE (21:45)
[2024-04-18 21:58] LABS: BLOOD UREA NITROGEN,BUN 23 mg/dL (7-18); BUN/CREATININE RATIO 25.6 (9-20); CALCIUM 9.3 mg/dL (8.6-10.2); CARBON DIOXIDE,CO2 27 mmol/L (21-32); CHLORIDE,CL 107 mmol/L (100-110); CREATININE 0.9 mg/dL (0.55-1.02); EST CRCL DRUG DOSING (CG) 63.86 mL/min; ESTIMATED GFR 77 mL/min (>60); POTASSIUM,K 3.7 mmol/L (3.5-5.3); RED BLOOD CELL COUNT 4.61 x10(6)uL (3.60-5.20); SODIUM,NA 143 mmol/L (135-145)
[2024-04-18 22:02] LABS: GLUCOSE RANDOM 24 mg/dL (80-116)
[2024-04-18] MEDS: Ondansetron 4 MG/2 ML SDV IVPUSH ONE (22:08)
[2024-04-18 22:48] VITALS: BP 102/54; PULSE 84
== END 2024-04-18 23:15 | disposition home or self-care (01) ==
LOC: FB.ED 21:10
DX: E11.649 Type 2 diabetes mellitus with hypoglycemia without coma (principal); K21.9 Gastro-esophageal reflux disease without esophagitis; Z88.0 Allergy status to penicillin; Z91.048 Other nonmedicinal substance allergy status; Z79.4 Long term (current) use of insulin; Z79.84 Long term (current) use of oral hypoglycemic drugs; Z79.899 Other long term (current) drug therapy
CPT/HCPCS: 36415; 80048; 82947; 85025; 96361; 96374; 96375; 99285; J2405

== ENCOUNTER 2025-01-26 14:24 | Emergency (ER) | payer MEDICAID ==
[2025-01-26] MEDS ORDERED: Glucose Gel 15 GM in 37.5 GM Tube PO ONE (15:37)
[2025-01-26 15:40] LABS: BASOPHILS ABSOLUTE AUTO 0.0 x10-3/uL (0.0-0.1); BASOPHILS PERCENT AUTO 0.4 % (0.2-1.5); EOSINOPHILS ABSOLUTE AUTO 0.2 x10-3/uL (0.0-0.8); EOSINOPHILS PERCENT AUTO 2.1 % (0.6-8.1); LYMPHOCYTES ABSOLUTE AUTO 2.3 x10-3/uL (1.0-4.4); LYMPHOCYTES PERCENT AUTO 25.4 % (18.4-52.1); MEAN PLATELET VOLUME 8.0 fL (7.1-12.4); MONOCYTES ABSOLUTE AUTO 0.6 x10-3/uL (0.3-1.0); MONOCYTES PERCENT AUTO 6.2 % (4.4-15.7); NEUTROPHILS ABSOLUTE AUTO 6.0 x10-3/uL (1.5-6.3); NEUTROPHILS PERCENT AUTO 65.9 % (30.8-76.2); PLATELET COUNT,PLT 245 x10(3)uL (151-488); RED BLOOD CELL COUNT 5.68 x10(6)uL (3.60-5.20); RED CELL DISTRIBUTION WIDTH 14.3 % (12.3-16.5); WHITE BLOOD CELL COUNT,WBC 9.1 x10-3/uL (3.0-10.3)
[2025-01-26 15:44] LABS: BLOOD UREA NITROGEN,BUN 13 mg/dL (7-18); CARBON DIOXIDE,CO2 24 mmol/L (21-32); CHLORIDE,CL 105 mmol/L (100-110); CREATININE 0.7 mg/dL (0.55-1.02); ESTIMATED GFR 105 mL/min (>60); GLUCOSE RANDOM 66 mg/dL (80-116); POTASSIUM,K 3.7 mmol/L (3.5-5.3); SODIUM,NA 138 mmol/L (135-145)
[2025-01-26 15:50] LABS: A/G RATIO 0.8; ALANINE AMINOTRANSFERASE,ALT 18 U/L (12-36); ASPARTATE AMNIOTRANSFERASE,AST 11 IU/L (5-25); BILIRUBIN TOTAL 0.3 mg/dL (0.1-1.3); PROTEIN TOTAL,TP 8.1 g/dL (6.0-8.0)
[2025-01-26 16:42] LABS: TSH ULTRASENSITIVE 3.13 IU/mL (0.36-3.74)
[2025-01-26 16:44] LABS: ETHANOL BLOOD MEDICAL < 0.03 % (<0.03)
[2025-01-26 17:55] LABS: AMPHETAMINES SCREEN, URINE POSITIVE (NEGATIVE); BUPRENORPHINE SCREEN,URINE NEGATIVE (NEGATIVE); METHADONE SCREEN, URINE NEGATIVE (NEGATIVE); METHAMPHETAMINE SCREEN, URINE POSITIVE (NEGATIVE); OXYCODONE SCREEN,URINE NEGATIVE (NEGATIVE)
[2025-01-27 08:20] VITALS: BP 113/72; PULSE 95
[2025-01-27] MEDS: GABAPENTIN 600 MG PO ONE (08:44)
== END 2025-01-27 09:30 ==
LOC: FB.ED 14:24
DX: T38.3X2A Poisoning by insulin and oral hypoglycemic [antidiabetic] drugs, intentional self-harm, initial encounter (principal); F32.A Depression, unspecified; K21.9 Gastro-esophageal reflux disease without esophagitis; E11.9 Type 2 diabetes mellitus without complications; Z79.899 Other long term (current) drug therapy; Z79.4 Long term (current) use of insulin; Z88.0 Allergy status to penicillin; Z91.048 Other nonmedicinal substance allergy status
CPT/HCPCS: 36415; 80053; 80143; 80179; 80307; 82947; 83036; 84443; 85025; 87635; 93005; 93010; 99285; A9270; U0002